=== PATIENT | male | born 1995 | race African-American/Black ===

== ENCOUNTER 2017-06-06 19:27 | Inpatient (IN) | payer BC ==
[2017-06-06] MEDS: IV NORMAL SALINE 500ML BAG 500 ML IV (20:15)
[2017-06-06] MEDS: fentaNYL PF VIAL 100 MCG/2 ML VIAL IV (20:55)
[2017-06-06] MEDS ORDERED: ONDANSETRON PF 4 MG/2 ML VIAL. IV (23:55)
[2017-06-06] MEDS: IV NORMAL SALINE 1000ML BAG 1,000 ML IV (23:55)
[2017-06-07 05:24] LABS: ADD MAN DIFF? NO
[2017-06-07 05:34] LABS: BASO % 1 % (0-3); EOS # 0.4 x10^3/uL (0.0-0.7); EOS % 9 % (0-3); HEMOGLOBIN 13.7 g/dL (13.0-17.5); LYMPH # 1.6 x10^3/uL (1.0-4.8); LYMPH % 37 % (24-48); MEAN CORPUSCULAR HEMOGLOBIN 27 pg (25-35); MEAN CORPUSCULAR HGB CONC 33 g/dL (31-37); MEAN CORPUSCULAR VOLUME 82 fL (79-100); MONO # 0.6 x10^3/uL (0.0-1.1); MONO % 13 % (0-9); NEUT # 1.8 x10^3uL (1.8-7.7); NEUT % 41 % (31-73); PLATELET COUNT 228 x10^3/uL (140-400); RED BLOOD COUNT 5.11 x10^6/uL (4.30-5.70); RED CELL DISTRIBUTION WIDTH 13.5 % (11.5-14.5); WHITE BLOOD COUNT 4.5 x10^3/uL (4.0-11.0)
[2017-06-07 05:53] LABS: ANION GAP 7 (6-14); BLOOD UREA NITROGEN 9 mg/dL (8-26); CALCIUM 8.5 mg/dL (8.5-10.1); CARBON DIOXIDE 28 mmol/L (21-32); CHLORIDE 106 mmol/L (98-107); CREATININE 0.7 mg/dL (0.7-1.3); GLUCOSE 114 mg/dL (70-99); POTASSIUM 3.8 mmol/L (3.5-5.1); SODIUM 141 mmol/L (136-145)
[2017-06-07] MEDS: MORPHINE SULFATE 4 MG/ML DISP.SYRIN. IV (08:30)
[2017-06-07] MEDS ORDERED: ONDANSETRON PF 4 MG/2 ML VIAL. IV (09:30)
[2017-06-07] MEDS: IV NORMAL SALINE 1000ML BAG 1,000 ML IV (09:55)
[2017-06-07] MEDS: NAPROXEN 500 MG TABLET PO ×2 (10:23→21:30)
[2017-06-07] MEDS: METOPROLOL TART IMMED RELEASE 50 MG TABLET. PO ×2 (10:24→21:21)
[2017-06-07] MEDS: fentaNYL PF VIAL 100 MCG/2 ML VIAL IV (12:15)
[2017-06-07] MEDS: oxyCODONE/APAP 5/325 1 TAB TABLET PO (15:09)
[2017-06-08] MEDS: METOPROLOL TART IMMED RELEASE 50 MG TABLET. PO (09:00)
[2017-06-08] MEDS: NAPROXEN 500 MG TABLET PO (10:12)
[2017-06-08] MEDS: IV NORMAL SALINE 1000ML BAG 1,000 ML IV (10:20)
[2017-06-08] MEDS ORDERED: traMADol 50 MG TABLET PO (11:45)
== END 2017-06-08 13:45 | disposition home or self-care (01) | DRG 556 ==
LOC: 4 NORTH 23:37 → ER 19:27
DX: M25.562 Pain in left knee (principal); I42.8 Other cardiomyopathies; I10 Essential (primary) hypertension; M25.522 Pain in left elbow; M25.512 Pain in left shoulder; M25.561 Pain in right knee
CPT/HCPCS: 36415; 70450; 71101; 72125; 73030; 73080; 73502; 73552; 73562; 80048; 85025; 93005; 97116-GP; 97161-GP; 99285; 99285-25; J2270; J3010; J7030; J7040